=== PATIENT | male | born 1980 | race Caucasian/White ===

== ENCOUNTER 2021-06-25 05:06 | Emergency (ER) | payer OTHER ==
[2021-06-25] MEDS ORDERED: SODIUM CHLORIDE 0.9% 1,000 ML IV ONE (05:13)
[2021-06-25] MEDS ORDERED: LORazepam 2 MG/ML INJ IV STA (05:13)
[2021-06-25 05:35] LABS: Basophils % (A) 0 %; Eosinophils # (A) 0.4 k/uL (0-0.7); Eosinophils % (A) 3 %; HCT 47.3 % (39.0-53.0); HGB 16.5 gm/dL (13.0-17.5); Lymphocytes # (A) 1.3 k/uL (1.0-4.8); Lymphocytes % (A) 11 %; MCH 33.8 pg (25.0-35.0); MCV 96.8 fL (80.0-100.0); Mean Platelet Volume 9.9; Monocytes # (A) 0.5 k/uL (0-1.0); Monocytes % (A) 4 %; Neutrophils # (A) 9.8 k/uL (1.3-7.7); Neutrophils % (A) 81 %; Platelet Count 145 k/uL (150-450); RBC 4.89 m/uL (4.30-5.90); RDW 12.7 % (11.5-15.5); WBC 12.2 k/uL (3.8-10.6)
[2021-06-25 05:45] LABS: Glucose 135 mg/dL (74-99); Sodium 142 mmol/L (137-145)
[2021-06-25 05:46] LABS: ALT 23 U/L (4-49); African American GFR (CKD) >90 (>60 ml/min/1.73 sqM); Albumin 4.6 g/dL (3.5-5.0); Anion Gap 13 mmol/L; Blood Urea Nitrogen 9 mg/dL (9-20); Calcium 8.7 mg/dL (8.4-10.2); Carbon Dioxide 22 mmol/L (22-30); Chloride 107 mmol/L (98-107); Non-African American GFR(CKD) >90 (>60 ml/min/1.73 sqM); Total Bilirubin 0.7 mg/dL (0.2-1.3); Total Protein 7.2 g/dL (6.3-8.2)
--- NOTE | 2021-06-25 05:59 | XR ---
EXAMINATION TYPE: XR chest 2V DATE OF EXAM: 06/25/2021 COMPARISON: NONE HISTORY: Overdose TECHNIQUE: 2 views FINDINGS: Heart and mediastinum are normal. Lungs are clear. Diaphragm is normal. Bony thorax is inta ct. IMPRESSION: Normal chest.
[2021-06-25 06:03] LABS: AST 36 U/L (17-59); Alkaline Phosphatase 90 U/L (38-126); Magnesium 1.9 mg/dL (1.6-2.3); Potassium 4.2 mmol/L (3.5-5.1)
[2021-06-25 06:30] VITALS: RESP 18
[2021-06-25] MEDS ORDERED: MORPHINE SULFATE 4 MG/ML SYRINGE IV STA (06:49)
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
[2021-06-25 08:33] VITALS: BP 151/87; PULSE 86; TEMP 97.8
== END 2021-06-25 08:33 | disposition home or self-care (01) ==
LOC: EC 05:06
DX: F15.10 Other stimulant abuse, uncomplicated (principal); F17.200 Nicotine dependence, unspecified, uncomplicated
CPT/HCPCS: 36415; 93005; 80053; 83735; 84484; 85025; 71046; 96374; 96375; 96361; 99285; J2060; J2270